=== PATIENT | female | born 1975 | race Hispanic/Latino ===

== ENCOUNTER 2016-09-27 10:25 | Day surgery (SDC) | payer OTHER ==
[~2016-09-27] VITALS: Ht 160 cm; Wt 88.9 kg
[~2016-09-27 10:25] MED LIST: ALBU6.7H INH; AMOX500C2 PO; BUSP15TA3 PO; CITA40TA PO; CYCL10TA9 PO; Lactated Ringer's 1,000 ML IV ONE; PROM25TA14 PO; [UNRECOGNIZED DRUG - CODE] PO
[2016-09-27] MEDS ORDERED: Propofol 10,000 mCg/mL 20 mL Inj ONE (10:26)
[2016-09-27 10:57] VITALS: BP 135/88; PULSE 69; RESP 16; O2SAT 96
[2016-09-27] MEDS ORDERED: MetoCLOpramide 5 mg/mL 2 mL Inj IVPUSH PRN (11:10)
[2016-09-27] MEDS ORDERED: Ondansetron 2 mg/mL 2 mL Inj IVPUSH PRN (11:10)
[2016-09-27] MEDS: Lactated Ringer's 1,000 ML IV SCH ×2 (11:17→11:47)
[2016-09-27 11:29] VITALS: BP 97/65; PULSE 76; RESP 14; O2SAT 95
[2016-09-27 11:45] VITALS: BP 139/82; PULSE 60; RESP 14; O2SAT 100
[2016-09-27 11:51] VITALS: BP 150/72; PULSE 61; RESP 14; O2SAT 100
--- NOTE | 2016-09-27 11:51 | ENDO ---
[address] [address] ENDOSCOPY PROCEDURE PATIENT: PREETHI PETERSON : 1975 MR#: [id number] ADMIT: 09/27/2016 JOB ID: [id number] DATE: 09/27/2016 TYPE OF OPERATION: Colonoscopy with biopsy. PREOPERATIVE DIAGNOSIS: Rectal bleeding. POSTOPERATIVE DIAGNOSIS(ES): 1. Small internal hemorrhoids. 2. Mild erythema within the rectum status post biopsy. ANESTHESIA: Monitored anesthesia care. COMPLICATIONS: None. BLOOD LOSS: Minimal. DESCRIPTION OF PROCEDURE: After the risks and benefits were explained to the patient, informed consent was obtained. After anesthesia administered, colonoscope was then inserted per rectum to cecum. Mucosa was carefully examined. Prep of the patient was fair. After the procedure was done, the scope was withdrawn and the procedure terminated. FINDINGS: After inspection of the anus, no masses, hemorrhoids, ulcers or fistulas were seen. Throughout the entire examination, there were no polyps or masses. There was mild erythema in the rectum which was biopsied. Retroflexion showed small internal hemorrhoids. IMPRESSION: 1. Small internal hemorrhoids. 2. Mild erythema in the rectum. RECOMMENDATIONS: 1. Await pathology results. 2. Followup in GI clinic as needed.
--- NOTE | 2016-09-27 19:41 | PCM.HPANE ---
Patient Data Surgeon Admitting Provider: Attending Provider:Mike Bowie MD Primary Care Physician:Robin Armstrong MD Other Provider:Ami Naranjoingham Anesthesia Reason for Visit Rectal Bleeding Ht/WT & BMI Body Mass Index Allergies Coded Allergies: No Known Allergies (Verified , 09/26/16) Past Anesthesia History Anesthesia History: Denies:: Anesthesia Reactions Diabetes History Hx Diabetes?: No MRSA MRSA: No Medications Reported Medications Promethazine 25 Mg [id number] Mg PO Q6H PRN For Nausea Ref 0 09/26/16 Cyclobenzaprine 10 Mg [id number] Mg PO HS PRN Spasm Ref 0 09/26/16 Buspirone 15 Mg Otorfv79 Mg PO DAILY Ref 0 09/26/16 Albuterol Sulfate (Proventil HFA Inhaler)6.7 Gm Hfa.aer.ad1 Puff INH Q4 PRN For Shortness of Breath #1 INHALER Ref 0 09/26/16 Hydrocod/APAP-Expunged Drug, Do Not Renew! (Hydrocod/APAP 10/325-Expunged, Do Not Renew!) Tab5 Mg PO Q4 01/14/11 Citalopram-Expunged Drug, Do Not Renew! 40 Mg Wqxfed55 Mg PO HS 01/14/11 Discontinued Reported Medications Amoxicillin 500 Mg [id number] Mg PO TID Ref 0 09/26/16 History History of ENT Problems?: No Hx of Respiratory Problem?: Yes Respiratory History: Positive for:: Asthma (Pro Air / albuterol ) Dyspnea (when asthma acts up) Tuberculosis (tested positive received medications) Hx Neurologic Problems?: Yes Neurological History: Positive for:: Headaches (migrains) Hx of GI Problems?: Yes Gastrointestinal History: Positive for:: Gastroesphageal Reflux Female Hx: Denies:: Endometriosis (unknown, several mo of lower abdominal pain / pressure) Hx of Psycho/Social Problems?: Yes Psycho Social History: Positive for:: Anxiety Hx Depression Hx Surgeries?: Yes (rt ovarian cystectomy, lft shoulder?) Hx Any Other Health Problems?: No Other History: Positive for:: Hospitalization (pancreatitis) Denies:: Cancer Endocrine Disease Thyroid Disease History Blood Transfusions: Denies:: Blood Transfusions Hx Diabetes: No Hx Alcohol Use: NoHx Substance Use: No Stop/Bang Risk Assessment Category Category 1A: Patient has history of documented sleep apnea, and HAS NOT received any narcotic, sedative or anesthesia administration during this stay. Category 1B: Patient has history of documented sleep apnea, and HAS received any narcotic , sedative or anesthesia administration during this stay Category 2: Patient has SUSPECTED Obstructive Sleep Apnea, and HAS received any narcotic , sedative or anesthesia administration during this stay. Category 3: Patient has SUSPECTED Obstructive Sleep Apnea and HAS NOT received narcotic, sedative or anesthesia administration during this stay. Category 4: Outpatient in Procedural Areas with known sleep apnea or who screen positive for High Risk via the STOP/BANG questionnaire. Exam Exam General Appearance: Alert, Oriented X3, Cooperative, No Acute Distress HEENT/AIRWAY: MP 2 Lungs: Clear to Auscultation, Normal Air Movement Heart: Exam Unremarkable, Regular Rate/Rhythm, No Murmurs/Rubs/Gallops Plan Impression Patient chart reviewed, patient interviewed and anesthestic plan with risks, benefits, and alternatives discussed, and informed consent obtained. NPO Status: > 8hrs ASA Physical Status: ASA2 Mod Systemic Disease Anesthetic Plan: MAC Bene/Risks/Altern/Consents: Yes HP Complete Prior to Induction: Yes Donato Rodgers MD Sep 27, 2016 08:04
--- NOTE | 2016-09-27 19:41 | PCM.ANEP1 ---
Post Anesthesia Phase 1 PACU Phase 1 Assessment Vital Signs Vital Signs Date Time Temp Pulse Resp B/P Pulse Ox O2 Delivery O2 Flow Rate FiO2 09/27/16 11:51 61 14 150/72 100 Room Air 09/27/16 11:45 60 14 139/82 100 Room Air Anesthetic Administered: MAC Level of Alertness: Awake, talking WEINSTEIN's with Equal Strength: Yes Pain: No Nausea or Vomiting: No Oxygen Delivery: Room Air Lungs: Clear to Auscultation, Normal Air Movement Dermatome Level: Full Sensation Donato Rodgers MD Sep 27, 2016 19:41
--- NOTE | 2016-09-27 19:42 | PCM.ANEP2 ---
Post Anesthesia Evaluation ASA/CMS Post Anesthesia VS in Patient's Normal Range?: Yes Resp Stable; Airway Patent?: Yes CV Function & Hydration Stable: Yes Mental Status Recovered?: Yes Pain control Satisfactory?: Yes N/V Control Satisfactory?: Yes Donato Rodgers MD Sep 27, 2016 19:41
--- NOTE | 2016-09-30 11:31 | PATH ---
SURGICAL PATHOLOGY Attending Physician:Mike Bowie MD CASE STATUS: Signed Out PATIENT NAME: PREETHI WARNER PID: [id number] : 1975 DATE COLLECTED:09/27/2016 16:41 SPECIMEN: Rectum, Biopsy CLINICAL HISTORY: RECTAL BIOPSY FINAL DIAGNOSIS: 1.RECTAL BIOPSY: RECTAL MUCOSA WITH HYPEREMIA AND RECENT MUCOSAL HEMORRHAGE. Negative for significant architectural distortion. Negative for significant inflammation, dysplasia and malignancy. ICD10 code K62.89 GROSS DESCRIPTION: The specimen is received in one formalin filled container labeled with the patient's name, sublabeled "rectal" and consists of 3 portions of tissue which aggregate to 0.3 x 0.3 x 0.2 CM. The specimen is entirely submitted in one cassette. 09/27/2016 [facility] MICRO DESCRIPTION: See diagnosis. ICD-9 CODES: CPT CODES: 1: 74911 Electronically Signed Out Galen Delgado MD [facility] [address], [place] [address] Technical component performed at [facility], [address] [place] [address] Ave[address], [place], [address]
== END 2016-09-27 23:59 | disposition home or self-care (01) ==
LOC: END 10:25
PROVIDERS: ATTEND Internal Medicine Gastroenterology
DX: K62.5 Hemorrhage of anus and rectum (principal); K64.8 Other hemorrhoids; K21.9 Gastro-esophageal reflux disease without esophagitis; Z79.899 Other long term (current) drug therapy
CPT/HCPCS: 45380; 88305; J7120